=== PATIENT | female | born 1985 | race American Indian/Alaskan Native ===

== ENCOUNTER 2020-07-09 06:37 | Emergency (ER) | payer MEDICAID ==
[2020-07-09 07:12] LABS: Basophils # (Auto) 0.1 K/mm3 (0.0-0.1); Basophils % (Auto) 0.6 % (0.0-1.8); Eosinophils % (Auto) 0.2 % (0.0-4.3); Hematocrit 32.1 % (30.3-42.9); Hemoglobin 11.4 gm/dl (10.1-14.3); Lymphocytes # (Auto) 2.1 K/mm3 (1.2-5.4); Lymphocytes % (Auto) 20.2 % (13.4-35.0); Mean Corpuscular HGB Conc 36 % (30-34); Mean Corpuscular Volume 84 fl (79-97); Monocytes # (Auto) 0.7 K/mm3 (0.0-0.8); Monocytes % (Auto) 7.2 % (0.0-7.3); Platelet Count 347 K/mm3 (140-440); Red Blood Count 3.84 M/mm3 (3.65-5.03); Red Cell Distribution Width 13.3 % (13.2-15.2)
[2020-07-09 07:34] LABS: Alanine Aminotransferase 58 units/L (7-56); Albumin 3.9 g/dL (3.9-5); Blood Urea Nitrogen 7 mg/dL (7-17); Hemolysis Index 5
[2020-07-09] MEDS ORDERED: ONDANSETRON 4 MG/2 ML INJ IV ONE ×2 (07:58→08:54)
[2020-07-09] MEDS ORDERED: SODIUM CHLORIDE 0.9% 1000 ML 1,000 ML IV ONE (07:58)
[2020-07-09 08:01] LABS: BUN/Creatinine Ratio 14
--- NOTE | 2020-07-09 08:05 | Emergency Department Report ---
ED N/V/D HPI - General Chief complaint: Nausea/Vomiting/Diarrhea Stated complaint: EMESIS/FATIGUE Time Seen by Provider: 07/09/20 07:22 Source: patient Mode of arrival: Ambulatory Limitations: No Limitations - History of Present Illness Initial comments: 34-year-old female presents to the ER today via EMS with complaints of nausea, and vomiting. Patient states that her symptoms started about 3 days ago. She states that she has been vomiting every day since Monday. She states that emesis is mainly liquid and sometimes bile. She states she has been able to tolerate water off and on, but unable to tolerate anything sweet liquids or any solids. Patient states that she has not had a bowel movement since Monday. She also states that she has been having decreased urine output since Monday. She denies dysuria, urinary odor or frequency. She states that she was having some lower abdominal pain when her symptoms first started but none currently. She states she is currently . She is not sure when her last menstrual cycle was and therefore is not sure how many weeks she is. She took a home test back in February 2020. She states that she is visiting from [place], she got here last week and was supposed to return this week and was supposed to have her first appointment with her [facility] in [place] this week but due to her symptoms she was unable to travel. She is G4, P3 Ab0. She denies any similar symptoms with her previous or any complications with her previous pregnancies. She denies tobacco abuse, and she denies any significant past medical history. Abdominal surgeries include C-sections. complaint: nausea, vomiting -: Gradual (3 days ago ) - Related Data Previous Rx's Medication Instructions Recorded Last Taken Type Ondansetron [Zofran Odt] 4 - 8 mg PO Q8HR #15 tab.rapdis 07/09/20 Unknown Rx Allergies Allergy/AdvReac Type Severity Reaction Status Date / Time No Known Allergies Allergy Unverified 07/09/20 06:53 ED Review of Systems ROS: Stated complaint: EMESIS/FATIGUE Other details as noted in HPI Comment: All other systems reviewed and negative Constitutional: malaise, weakness. denies: chills, fever Eyes: denies: eye pain, eye discharge, vision change ENT: denies: ear pain, throat pain, dental pain, hearing loss, epistaxis Respiratory: denies: cough, shortness of breath, SOB with exertion, SOB at rest, stridor, wheezing Cardiovascular: denies: chest pain, palpitations, dyspnea on exertion, edema, syncope, paroxysmal nocturnal dyspnea Gastrointestinal: abdominal pain, nausea, vomiting. denies: diarrhea, constipation, hematemesis, melena, hematochezia Genitourinary: abnormal menses, dyspareunia (decrease urine output), other. denies: urgency, dysuria, frequency, hematuria, discharge Musculoskeletal: denies: back pain, joint swelling, arthralgia, myalgia Skin: denies: rash, lesions, change in color, change in hair/nails, pruritus Neurological: weakness. denies: headache, numbness, paresthesias, confusion, abnormal gait, vertigo Psychiatric: denies: anxiety, depression, auditory hallucinations, visual hallucinations, homicidal thoughts, suicidal thoughts Hematological/Lymphatic: denies: easy bleeding, easy bruising, swollen glands ED Past Medical Hx - Past Medical History Previous Medical History?: No - Surgical History Past Surgical History?: Yes Additional Surgical History: C-sec X 3 - Social History Smoking Status: Current Every Day Smoker Substance Use Type: None - Medications Home Medications: Home Medications Medication Instructions Recorded Confirmed Last Taken Type Ondansetron [Zofran Odt] 4 - 8 mg PO Q8HR #15 tab.rapdis 07/09/20 Unknown Rx ED Physical Exam - General Limitations: No Limitations General appearance: alert, in distress (patient appears uncomfortable from nausea and vomiting) - Head Head exam: Present: atraumatic, normocephalic, normal inspection - Eye Eye exam: Present: normal appearance, PERRL, EOMI Pupils: Present: normal accommodation - ENT ENT exam: Present: normal exam, mucous membranes moist - Neck Neck exam: Present: normal inspection, full ROM. Absent: meningismus - Respiratory Respiratory exam: Present: normal lung sounds bilaterally. Absent: respiratory distress, wheezes, rales - Cardiovascular Cardiovascular Exam: Present: regular rate, normal rhythm, normal heart sounds - GI/Abdominal GI/Abdominal exam: Present: soft, tenderness (mild suprapubic ttp ). Absent: distended, guarding, rebound - Back Exam Back exam: Present: full ROM - Neurological Exam Neurological exam: Present: alert, oriented X3, CN II-XII intact, normal gait - Psychiatric Psychiatric exam: Present: normal affect, normal mood - Skin Skin exam: Present: intact ED Course Vital Signs 07/09/20 06:45 Temperature 98.6 F Pulse Rate 93 H Respiratory 18 Rate Blood Pressure 122/79 O2 Sat by Pulse 98 Oximetry ED Medical Decision Making - Lab Data Result diagrams: 07/09/20 07:00 07/09/20 07:00 - Radiology Data Radiology results: report reviewed Patient: NELSY SOLARES MR#: [id number] [birth year] : 1985 Acct:[id number] Age/Sex: 34 / F ADM Date: 07/09/20 Loc: ED Attending Dr: Ordering Physician: ZITA BERRY Date of Service: 07/09/20 Procedure(s): US OB >= 14 weeks Fetus Accession Number(s): [id number] cc: ZITA BERRY OB Ultrasound HISTORY: preg/low abd pain/Quant 6474. TECHNIQUE: Grayscale and color imaging performed. COMPARISON: None FINDINGS: Single viable intrauterine gestation with breech presentation and subjectively normal RHONDA. Placenta is located anteriorly. Cervical length was measured at 3.4 cm. heart rate is 144 bpm. Overall EGA by ultrasound is 22 weeks and 5 days with an estimated delivery date of 11/07/2020 compared to a clinical gestational age of 21 weeks and 2 days. Estimated weight is 518 g. Limited anatomic survey shows normal stomach, kidneys, diaphragm, heart, and umbilical cord insertion. Evaluation of the spine was limited. IMPRESSION: Single viable intrauterine gestation as above. Signer Name: Christopher Husain MD Signed: 07/09/2020 8:58 AM Workstation Name: [id number] Transcribed By: KAL Dictated By: Christopher Husain MD Electronically Authenticated By: Christopher Husain MD Signed Date/Time: 07/09/20 0858 DD/ TD/TT: - Medical Decision Making 1146: Patient reports feeling better after the milligrams of IV Zofran and IV fluids. She was able to tolerate p.o. fluids without any vomiting during stay. She is also able tolerate the potassium. She is currently resting comfortably. She currently does not appear to be in distress. No signs of severe dehydration on exam. Repeat abdominal exam shows a soft nontender abdomen. She is not t oxic or ill-appearing. Labs reviewed-CMP shows hypokalemia with a potassium is 3.0, hypochloremia with a chloride level of 92.9, mild hyponatremia with a sodium of 134, glucose of 120 and mild elevation to her AST and ALT but her remaining levels were unremarkable. C BC unremarkable. Urine suggest more contamination than a true UTI but she does not have symptoms of a UTI, but urine culture is pending. OB ultrasound shows single IUP measuring about 22 weeks and 5 days 1155: Discussed case with Corie Kapoor, [employer] public relations counselor for [facility] --since patient is feeling better, able to tolerate p.o. fluids with normal vomiting and she has an ultrasound showing a viable she recommended patient can be discharged home with instructions to follow-up with either her [facility] as soon as she returns to [place] or [facility] locally if she decides to stay. Patient states that she plans on returning to [place] next Monday but informed her that I will give her referral for local [facility] just in case she decides to stay. She will be discharged home with a prescription for Zofran, recommend lots of fluids, and doing a bland diet for now. Patient expressed understanding of instructions and agree with plan. Patient was stable at time of discharge. Critical care attestation.: If time is entered above; I have spent that time in minutes in the direct care of this critically ill patient, excluding procedure time. ED Disposition Clinical Impression: Nausea and vomiting during , Dehydration, mild, Hyperemesis gravidarum Disposition: TO HOME OR SELFCARE Is pt being admited?: No Does the pt Need Aspirin: No Condition: Stable Instructions: Dehydration, Adult, [id number], Hyperemesis Gravidarum, Nausea and Vomiting, Adult, [id number], [place] Diet Additional Instructions: Take the Zofran as prescribed. Recommend that you drink lots of fluids which includes water, vitamin water, Gatorade, or Pedialyte. You can also try hanna chews or hanna lainey. Recommend doing a bland diet. Follow-up with your [facility] as well as return to [place]. You will be given the name and number for [facility] locally just in case you decide to stay for follow-up. Return to the ER if your symptoms changes or worsens in any way. Prescriptions: Ondansetron [Zofran Odt] 4 - 8 mg PO Q8HR #15 tab.herminiodis Referrals: [facility] [Provider Group] - 3-5 Days Time of Disposition: 12:00
[2020-07-09] MEDS ORDERED: POTASSIUM CHLORIDE ER 20 MEQ TAB PO ONE (08:54)
--- NOTE | 2020-07-09 09:02 | Ultrasound Report ---
OB Ultrasound HISTORY: preg/low abd pain/Quant 6474. TECHNIQUE: Grayscale and color imaging performed. COMPARISON: None FINDINGS: Single viable intrauterine gestation with breech presentation and subjectively normal RHONDA. Placenta is located anteriorly. Cervical length was measured at 3.4 cm. heart rate is 144 bpm. Overall EGA by ultrasound is 22 weeks and 5 days with an estimated delivery date of 11/07/2020 compare d to a clinical gestational age of 21 weeks and 2 days. Estimated weight is 518 g. Limited anatomic survey shows normal stomach, kidneys, diaphragm, heart, and umbilical cord insertion . Evaluation of the spine was limited. IMPRESSION: Single viable intrauterine gestation as above. Signer Name: Christopher Husain MD Signed: 07/09/2020 8:58 AM Workstation Name: [id number]
[2020-07-09 10:19] LABS: Bacteria,Urine 1+ /HPF (Negative); Bilirubin,Urine SM (Negative); Blood,Urine NEG (Negative); Color,Urine Amber (Yellow); Mucus,Urine 3+ /HPF
[2020-07-09 10:20] LABS: Protein,Urine >500 mg/dL (Negative)
[2020-07-09 10:25] LABS: Ictotest,Urine Negative (Negative)
[2020-07-09 12:27] VITALS: BP 109/56
== END 2020-07-09 12:31 | disposition home or self-care (01) ==
LOC: ED 06:37
DX: O21.0 Mild hyperemesis gravidarum (principal); O26.892 Other specified pregnancy related conditions, second trimester; O99.332 Smoking (tobacco) complicating pregnancy, second trimester; E86.0 Dehydration; Z79.899 Other long term (current) drug therapy; Z98.890 Other specified postprocedural states; Z3A.21 21 weeks gestation of pregnancy
CPT/HCPCS: 36415; 76805; 80053; 81001; 83690; 83735; 84702; 84703; 85025; 87086; 96361; 96374; 96376; 99284; J2405; J7030